=== PATIENT | female | born 1960 | race Caucasian/White ===

== ENCOUNTER → 2023-07-07 06:50 | Outpatient (REF) | payer BC, MEDICARE, SELFPAY | LOC: PAVMRI 06:50 | PROVIDERS: ATTENDING PHYSICIAN Student in an Organized Health Care Education/Training Program; FAMILY PHYSICIAN Family Medicine | DX: M54.50 Low back pain, unspecified (principal); M43.6 Torticollis; M41.86 Other forms of scoliosis, lumbar region; M54.16 Radiculopathy, lumbar region | CPT/HCPCS: 72148 ==